=== PATIENT | male | born 1980 | race Caucasian/White ===

== ENCOUNTER 2017-06-11 15:40 | Observation (INO) | payer OTHER ==
[2017-06-11] MEDS ORDERED: Fentanyl 100 MCG/2 ML VIAL ONE (16:02)
[2017-06-11] MEDS ORDERED: Ondansetron HCl/PF 4 MG/2 ML Vial IVP PRN (16:24)
[2017-06-11] MEDS ORDERED: Ketorolac Tromethamine 30 MG/ML VIAL IVP PRN (16:27)
--- NOTE | 2017-06-11 17:31 | HP ---
DATE OF ADMISSION: 06/11/2017 HISTORY OF PRESENT ILLNESS: Mr. Rivera is a 36-year-old man, who presented to [facility] in [place] complaining of insidious onset of epigastric to right upper quadrant abdominal pain wh ich started this morning. Pain was described as sharp, without radiation. The pain was rated at 9/ 10, associated with multiple episodes of nonbilious emesis and unrelenting nausea. The patient calderon es any fevers or chills. Denies any change in his bowel habits. He reports a similar pain pattern over the last 2 months, which resolved spontaneously. Pain is usually postprandial in nature. His breakfast this morning consisting of some morphines, wh ich preceded the pain. PAST MEDICAL HISTORY: Denies any previous medical problems. PAST SURGICAL HISTORY: Pertinent for arthroscopic surgeries to right shoulder and left knee. SOCIAL HISTORY: The patient is , lives at home with his . 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 He admits occasional intake of ethanol in moderate amounts. Denies any cigarette smoking or illicit drug abuse. FAMILY HISTORY: Notable for pancreatic carcinoma in a grandmother. He also has a significant famil y history of coronary artery disease. He denies any family history of essential hypertension or diabetes mellitus. CURRENT MEDICATIONS: None. ALLERGIES: MORPHINE and COMPAZINE. MORPHINE gives him the hives and COMPAZINE makes him delirious. REVIEW OF SYSTEMS: A 10 point review of systems essentially unremarkable except for as stated in pa st medical history and chief complaint. PHYSICAL EXAMINATION: GENERAL: This reveals a 36-year-old normally developed man who is otherwise coherent and interactiv e and appears stated age. The patient is alert and oriented x3, appears to be in no significant acu te distress at the time of my evaluation. VITAL SIGNS: Includes blood pressure 114/71, pulse 69, respiration 22, temperature 97.7 degrees Fah renheit. Oxygen saturation is 95% on room air. HEENT: Reveals normocephalic and atraumatic. Pupils are equal, round, and reactive to light and ac commodation. Extraocular muscles are intact bilaterally. No sclerae icterus is present. Oral muco sa is pink and moist. No lesions are noted. NECK: Supple. No palpable lymphadenopathy or thyromegaly present. HEART: Reveals regular rate and rhythm. No murmurs or gallops auscultated. LUNGS: Clear to auscultation bilaterally. His breathing is regular and unlabored. ABDOMEN: Soft and obese. He has right upper quadrant tenderness to palpation with a positive Clara y sign. Liver and spleen are otherwise nonpalpable below costal margins. EXTREMITIES: Reveals 2+ radial and pedal pulses bilaterally. He has no ankle edema present. NEUROLOGIC EXAMINATION: Reveals no focal neurologic deficits present. PERTINENT LABORATORY DATA: I have reviewed the accompanying laboratory studies from [place] includes a CBC with 8700 white blood cells, hemoglobin 15.4, hematocrit is 46.2, platelet count 299,000. Metabolic profile: Sodium 136, potassium is 3.6, chloride is 104, bicarbonate 24, BUN 17, creatinin e 0.92, glucose is 118. AST and ALT both normal at 18 and 35 respectively. Alkaline phosphatase is also normal at 61. Serum lipase is normal at 53 units per liter. I have also reviewed the accompa nying abdominal ultrasound from [place] which reveals multiple intraluminal gallstones. No significa nt gallbladder wall thickening or pericholecystic fluid. Common bile duct is 4.6 mm in diameter, wh ich is upper limits for patient's age. IMPRESSION: Acute cholecystitis with cholelithiasis. PLAN: Laparoscopic cholecystectomy. I have advised the patient of the above findings and plan. I have also advised him of the risks and benefits of the proposed surgery. Risks include, but not l imited to bleeding, infection, injury to bile duct or surrounding structures. Patient indicates understanding of the information provided him today. I have answered all his ques tions. The patient has given consent for this admission and surgical intervention.
[2017-06-11] MEDS ORDERED: Acetaminophen 1,000 MG in Premix Bag 1 BAG IVPB SCH (18:00)
[2017-06-11] MEDS: Sodium Chloride 0.9% 1,000 ML IV SCH (20:58)
[2017-06-11] MEDS: Acetaminophen 1,000 MG in Premix Bag 1 BAG IVPB SCH (21:03)
[2017-06-11 22:31] VITALS: BMI 33.3
[2017-06-11] MEDS ORDERED: Fentanyl 100 MCG/2 ML VIAL SLOW IVP PRN (22:32)
[2017-06-12] MEDS: Acetaminophen 1,000 MG in Premix Bag 1 BAG IVPB SCH ×2 (03:02→09:00)
[2017-06-12 05:33] LABS: PTT 28.5 SEC (22.9-36.1); Prothrombin Time 13.7 SEC (12.0-14.7)
[2017-06-12] MEDS: Sodium Chloride 0.9% 1,000 ML IV SCH ×2 (05:48→09:00)
[2017-06-12 05:50] LABS: ALT (SGPT) 25 U/L (8-55); AST (SGOT) 15 U/L (5-34); Alkaline Phosphatase 55 U/L (40-150); Anion Gap 11 mmol/L (10-20); BUN (Urea Nitrogen) 14 mg/dL (8.9-20.6); Bilirubin, Total 0.9 mg/dL (0.2-1.2); Calc. Creatinine Clearance 152 mL/min (70-130); Calcium 8.6 mg/dL (7.8-10.44); Carbon Dioxide 23 mmol/L (22-29); Chloride 106 mmol/L (98-107); Estimated GFR-MDRD Greater than 90; Globulin 2.9 g/dL (2.4-3.5); Protein, Total 6.6 g/dL (6.0-8.3)
[2017-06-12] MEDS ORDERED: Bupivacaine HCl 0.5%/Epinephrine 1:200,000/PF 30 ml Vial ONE (07:14)
[2017-06-12] MEDS ORDERED: Fentanyl 100 MCG/2 ML VIAL ONE ×3 (07:45→10:46)
[2017-06-12] MEDS ORDERED: Ketorolac Tromethamine 30 MG/ML VIAL ONE (08:48)
[2017-06-12] MEDS ORDERED: Glycopyrrolate 0.2 MG/ML 5 ML SYRINGE ONE (08:48)
[2017-06-12] MEDS ORDERED: Lidocaine 2% PF 10 ML AMP (For Epidural Use) ONE (08:48)
[2017-06-12] MEDS ORDERED: Ondansetron HCl/PF 4 MG/2 ML Vial ONE (08:48)
[2017-06-12] MEDS ORDERED: Propofol 200 MG/20 ML VIAL ONE (08:48)
[2017-06-12] MEDS ORDERED: Dexamethasone 20 MG/5 ML VIAL ONE (08:48)
[2017-06-12] MEDS ORDERED: Ondansetron HCl/PF 4 MG/2 ML Vial IVP PRN (10:06)
[2017-06-12] MEDS ORDERED: HYDROmorphone 2 MG/ML VIAL SLOW IVP PRN (10:06)
[2017-06-12] MEDS ORDERED: Promethazine HCl 25 MG/ML VIAL ONE (10:10)
[2017-06-12] MEDS ORDERED: Promethazine HCl 25 MG/ML VIAL SLOW IVP SCH (10:30)
[2017-06-12] MEDS ORDERED: traMADol HCl 50 MG TAB PO PRN ×2 (11:11)
[2017-06-12] MEDS ORDERED: Ibuprofen 800 MG TAB PO PRN (11:11)
[2017-06-12] MEDS ORDERED: Acetaminophen 500 MG TAB PO SCH (12:00)
--- NOTE | 2017-06-12 12:42 | OP ---
DATE OF OPERATION: 06/12/2017 PREOPERATIVE DIAGNOSIS: Acute cholecystitis with cholelithiasis. POSTOPERATIVE DIAGNOSIS: Acute cholecystitis with cholelithiasis. SURGERY PERFORMED: Laparoscopic cholecystectomy. SURGEON: Jona Gambino D.O. ANESTHESIA: General endotracheal. ESTIMATED BLOOD LOSS: 10 mL. FLUIDS GIVEN: 800 mL crystalloids. SPONGE AND INSTRUMENT COUNT: Certified as correct x2. COMPLICATIONS: None apparent at the time of operation. INDICATIONS FOR PROCEDURE: A 36-year-old man presented with insidious onset of epigastric to right upper quadrant abdominal pain. Clinical and radiographic examination was consistent with an acute c holecystitis with cholelithiasis for which patient was brought to the operating room for cholecystec nanci. Findings are consistent with gallbladder in the usual anatomic location partially encased by omental adhesions. DESCRIPTION OF PROCEDURE: Informed consent obtained from the patient who was brought to the operati ng room and placed in supine position. Following general anesthesia, abdomen is sterilely prepped a nd draped in the usual fashion. The skin below the umbilicus was infiltrated with 0.25% Marcaine wi th epinephrine. A small curvilinear infraumbilical incision is made using an 11 scalpel. Umbilical stalk was grasped with Fer and elevated. Veress needle was inserted through the incision and pl aced in peritoneal cavity through which the abdomen was insufflated with 2.5 liters of CO2 gas. Int ra-abdominal pressure was noted at 1 mmHg. Following abdominal insufflation, Veress needle was lisa hiram and a 5 mm trocar inserted through the incision and placed in the peritoneal cavity through whic h this was performed under laparoscopy using the Visiport. Laparoscopy further reveals proper place ment of the port, no injuries to underlying structures. Additional laparoscopy reveals gallbladder in the usual anatomic location partially encased by omental adhesions. Under laparoscopy, a 12 mm e pigastric and two 5 mm right lateral subcostal ports were placed after the overlying skin was infilt rated with 0.25% Marcaine with epinephrine and appropriate incisions made. The patient is placed in the reverse Trendelenburg position, rotated to his left. I introduced a Prestige grasper through t he right lateral subcostal port grasping the fundus of the gallbladder which was elevated cephalad. I then used a [place] dissector with cautery to takedown omental adhesions. A second Prestige gra sper was introduced through the right medial subcostal port grasping the Sean's pouch which was retracted laterally. The cystic artery was dissected free from surrounding structures at the triang le of Calot and divided. This duct was divided between clips applying two clips proximally and one clip at the junction of the cystic duct and gallbladder. The cystic artery was also dissected free from surrounding structures and divided between clips in a similar fashion. Gallbladder is removed from the liver bed using thermal cautery. The gallbladder was delivered out of the abdominal cavity using an EndoCatch. The operative site was inspected. There was some minor oozing from the gallbl adder fossa. Hemostasis was readily achieved using a 1 x 2 inch piece of fibula. All clips remain in place, no bile stains noted. Finding no other pathology, laparoscopy was terminated. Fascia of the epigastric port site was closed using 0 Vicryl suture and Endo closure device under laparoscopy. Abdomen was desufflated. All ports and instruments removed and accounted for. The skin incisions were closed using 4-0 Monocryl suture in subcuticular fashion. Dermabond was applied to the incisi ons. The patient tolerated this operation without any apparent complications and was returned to re covery room in a satisfactory condition.
[2017-06-12 15:13] VITALS: BP 103/59; TEMP 97.4
== END 2017-06-12 15:41 | disposition home or self-care (01) ==
LOC: ERS 15:40 → EEVIPCON 15:40 → ONC 19:43
PROVIDERS: ADMIT Surgery; ATTEND Surgery
PROC: 0FT44ZZ Resection of Gallbladder, Percutaneous Endoscopic Approach (ICD-10-PCS; principal; 2017-06-12)
DX: K80.10 Calculus of gallbladder with chronic cholecystitis without obstruction (principal); Z88.5 Allergy status to narcotic agent; Z88.8 Allergy status to other drugs, medicaments and biological substances; Z98.890 Other specified postprocedural states; Z87.891 Personal history of nicotine dependence
CPT/HCPCS: 36415; 80053; 85610; 85730; 88304; 96361; 96374; 96375; 96376; A4216; G0378; J0131; J0670; J1100; J1170; J1885; J2001; J2405; J2550; J2704; J3010

== ENCOUNTER 2019-01-24 10:23 | Outpatient (CLI) | payer OTHER | END 2019-01-24 10:24 | disposition home or self-care (01) | LOC: CTENTCT 10:23 | PROVIDERS: ATTEND Otolaryngology Plastic Surgery within the Head & Neck | DX: J34.2 Deviated nasal septum (principal) | CPT/HCPCS: 70486 ==

== ENCOUNTER → 2019-03-09 | Day surgery (SDC) | payer OTHER ==
[2019-03-08 12:25] VITALS: BMI 35.4
[~2019-03-09] MED LIST: Bacitracin Zinc Ointment 30 gm TUBE ONE; Dexamethasone 20 MG/5 ML VIAL ONE; Fentanyl 100 MCG/2 ML VIAL ONE; Glycopyrrolate 0.2 MG/ML 5 ML SYRINGE ONE; Lidocaine 1% PF 5 ML VIAL ONE; Lidocaine 1% w/Epinephrine 1:100K 20 ML VIAL ONE; Midazolam HCl 2 mg/2 ml Vial ONE; Ondansetron PF 4 MG/2 ML Vial ONE; Oxymetazoline HCl 0.05% ( 15 ML ) ONE; PROPOFOL 200 MG/20 ML VIAL ONE; Promethazine HCl 25 MG/ML VIAL ONE; Rocuronium Bromide 10 MG/ML (10ML VIAL) ONE; methylPREDNISolone Acetate 40 mg/ml Vial ONE
--- NOTE | 2019-03-10 11:32 | OP ---
DATE OF PROCEDURE: 03/09/2019 PREOPERATIVE DIAGNOSES: 1. Chronic rhinosinusitis. 2. Nasal septal deviation. 3. Bilateral inferior turbinate hypertrophy. 4. Nasal obstruction. 5. Chronic adenotonsillitis. 6. Adenotonsillar hypertrophy. 7. Snoring. POSTOPERATIVE DIAGNOSES: 1. Chronic rhinosinusitis. 2. Nasal septal deviation. 3. Bilateral inferior turbinate hypertrophy. 4. Nasal obstruction. 5. Chronic adenotonsillitis. 6. Adenotonsillar hypertrophy. 7. Snoring. PROCEDURES PERFORMED: 1. Bilateral endoscopic sinus surgery, total ethmoidectomies. 2. Bilateral endoscopic sinus surgery, maxillary antrostomies. 3. Bilateral endoscopic sinus surgery, frontal sinusotomies. 4. Bilateral endoscopic sinus surgery, sphenoidotomies. 5. Nasal septoplasty. 6. Bilateral inferior turbinate submucosal resection. 7. Tonsillectomy and adenoidectomy. ESTIMATED BLOOD LOSS: 50 mL. COMPLICATIONS: None. ANESTHESIA: GETA. DESCRIPTION OF PROCEDURE: TONSILLECTOMY AND ADENOIDECTOMY: After consent was obtained, the patient was identified, brought to the operating room, and placed on the operating table in the supine position. General endotracheal anesthesia and intravenous access were obtained and we proceeded with positioning the patient for oropharyngeal surgery. Oropharyngeal exposure was obtained with a Caren-Justen mouth gag after a head drape was placed and secured with a towel clip. The Caren-Justen mouth gag was then suspended from the Rm tray and palatal elevation was achieved with a red rubber catheter. The right tonsil was addressed first. We used a curved Allis to grasp the tonsil and retract it medially as an anterior pillar incision was made. The retrotonsillar fascial plane was then established and blunt dissection was performed with the suction cautery. Blood vessels were anticipated, identified, and cauterized as they were encountered. Ultimately, dissection was carried to the posterior tonsillar pillar mucosa which was incised hemostatically, as well as the base of tongue connection. The tonsil was then passed off as a specimen and bleeding points within the tonsillar bed were cauterized under direct visualization. We subsequently turned our attention to the contralateral side, where using a similar technique, a near identical procedure was performed. Again, the tonsil was grasped and retracted medially with a curved Allis. The retrotonsillar fascial plane was established and while the anterior pillar was retracted medially. The hemostatic blunt dissection of the tonsil with a suction cautery was performed with blood vessels anticipated, identified, and cauterized as they were encountered. Again, dissection continued to the base of tongue and posterior tonsillar pillar mucosa which was incised in a hemostatic fashion. The tonsillar beds were then carefully inspected and bleeding points were identified and cauterized with a suction cautery. After this portion of the procedure, hemostasis was completely obtained. Under direct mirror visualization, we visualized the adenoid pad. Under direct mirror visualization, we removed the bulk of the adenoid tissue with the adenoid curette. We then packed the nasopharynx for an appropriate period of time with [id number] tonsillar sponges. After a period of observation, we removed the pack. Under indirect mirror visualization, we obtained hemostasis and vaporization of residual adenoid tissue with electrocautery. The patient's oral cavity was copiously irrigated with iced saline and subsequently suctioned. After completion of the procedure, the nasal cavity and oropharynx were irrigated and suctioned as were the gastric contents. The patient was then awakened and transferred to the recovery room where the patient remained in stable condition prior to discharge to Day Stay. NASAL SEPTOPLASTY AND BILATERAL INFERIOR TURBINATE RESECTION: Patient was taken to the operating room and placed supine on the table. General endotracheal anesthesia was obtained by the anesthesia staff. Tube was secured in the left lower lip. Patient was then placed in the beach chair position, and Afrin pledgets were placed in the nasal cavity. Injections of 1% lidocaine with 1:100,000 epinephrine were made into the nasal septum as well as the inferior turbinates. Patient was then prepped and draped in standard surgical fashion for nasal surgery. Following this, the Afrin pledgets were removed. A Akil incision was made on the left nasal septum. Submucoperichondrial dissection was performed. The deviated portions of the septum included portions of the cartilage and the bony septum. These isolated areas were removed using 3 cutting rongeurs. There was noted to be a large dorsal and caudal strut, left intact for support of the nose. The mucoperichondrial flaps were then reapproximated using a 4-0 gut stitch. Any straight pieces of cartilage were crushed prior to this and placed between the mucoperichondrial flaps. Following this, the inferior turbinates were then punctured with a submucosal coblation wand, and submucosal coblations were performed of multiple areas of the inferior portion of the anterior inferior turbinate. A microdebrider was used to submucosally resect the anterior and inferior portions of the inferior turbinates bilaterally. Following this, the 0-degree endoscope was advanced in the middle meatus. The middle turbinates were gently medialized using a White elevator. The uncinate process was then anteriorly fractured using a ball-ended probe bilaterally. The uncinate process was then removed bilaterally using the 0-degree microdebrider. Following this, the natural maxillary sinus ostia was identified and was gently palpated and widened and identified using the ball-ended probe bilaterally. The natural maxillary sinus ostium was then widened using the curved microdebrider and straight Blakesley forceps bilaterally. Following this, the ethmoidal bulla was identified and was punctured on its medial and inferior aspects using the 0-degree microdebrider. The microdebrider was then used to remove the ethmoidal bulla as well as identify the grand lamella bilaterally. Following this, the grand lamella was punctured into the posterior ethmoidal cells working from posterior to anterior. The ethmoidal cells were opened in a mucosal sparing technique. Following this, the 45-degree endoscope and the 40-degree microdebrider blade were used to further open the frontal recess cells bilaterally as well as identify and widen the frontal sinus ostia bilaterally. Following this, the sphenoid sinuses were approached through the previous ethmoidectomies with the 0-degree microdebrider and the 0-degree endoscope. The sphenoid sinus ostium was identified and was noted to be markedly inflamed. The microdebrider was used to puncture the sphenoid sinus ostia bilaterally and widen the sphenoid ostia medially and inferiorly with the 0-degree microdebrider. Following this, nasal cavity was irrigated. Mirapex was placed within the middle meatus. Bashir splints were placed and secured. The patient tolerated the procedure well. Job ID: [id number]
== END ==
LOC: SDC 07:46
PROVIDERS: ATTEND Otolaryngology Plastic Surgery within the Head & Neck
PROC: 09TL8ZZ Resection of Nasal Turbinate, Via Natural or Artificial Opening Endoscopic (ICD-10-PCS; principal; 2019-03-09)
PROC: 0CTPXZZ Resection of Tonsils, External Approach (ICD-10-PCS; principal; 2019-03-09)
PROC: 099R8ZZ Drainage of Left Maxillary Sinus, Via Natural or Artificial Opening Endoscopic (ICD-10-PCS; principal; 2019-03-09)
PROC: 0CTQXZZ Resection of Adenoids, External Approach (ICD-10-PCS; principal; 2019-03-09)
PROC: 09BM8ZZ Excision of Nasal Septum, Via Natural or Artificial Opening Endoscopic (ICD-10-PCS; principal; 2019-03-09)
PROC: 099Q8ZZ Drainage of Right Maxillary Sinus, Via Natural or Artificial Opening Endoscopic (ICD-10-PCS; principal; 2019-03-09)
DX: J35.03 Chronic tonsillitis and adenoiditis (principal); J34.2 Deviated nasal septum; J34.3 Hypertrophy of nasal turbinates; J32.9 Chronic sinusitis, unspecified; J34.89 Other specified disorders of nose and nasal sinuses; J30.0 Vasomotor rhinitis; J30.1 Allergic rhinitis due to pollen; J30.81 Allergic rhinitis due to animal (cat) (dog) hair and dander; Z79.51 Long term (current) use of inhaled steroids; Z88.5 Allergy status to narcotic agent; Z88.8 Allergy status to other drugs, medicaments and biological substances
CPT/HCPCS: 88304; J1030; J1100; J2001; J2250; J2405; J2550; J2704; J3010